=== PATIENT | female | born 1970 | race African-American/Black ===

== ENCOUNTER 2020-10-25 13:55 | Outpatient (REF) | payer OTHER, SELFPAY | END 2020-10-25 13:56 | disposition home or self-care (01) | LOC: HO.LNP 13:55 | PROVIDERS: Visit Provider Nurse Practitioner Family | DX: Z20.828 Contact with and (suspected) exposure to other viral communicable diseases (principal) | CPT/HCPCS: U0003 ==

== ENCOUNTER 2022-07-12 09:02 | Outpatient (REF) | payer OTHER, SELFPAY ==
--- NOTE | ~2022-07-12 | XR_ITS ---
EXAMINATION: XR HIP, LEFT CLINICAL INFORMATION: Low back pain COMPARISON: None TECHNIQUE: Two views of the left hip. FINDINGS: Bones and soft tissues are normal. No fracture. Alignment is anatomic. Hip joint space is maintained. Phleboliths are noted in the right hemipelvis. XR/XR hip LT w PEL1V IMPRESSION: Normal left hip.
[2022-07-12 11:26] LABS: Hematocrit 36.9 % (37.0-47.0); Hemoglobin 12.2 g/dl (12.0-16.0); Mean Corpuscular HGB Conc 33.1 g/dl (31.0-35.0); Mean Corpuscular Hemoglobin 28.6 pg (27.0-33.0); Mean Corpuscular Volume 86.4 fL (80.0-98.0); Mean Platelet Volume 10.3 fL (9.4-12.3); Platelet Count 283 X10*3/uL (160-400); Red Blood Count 4.27 X10*6/uL (4.20-5.50); Red Cell Distribution Width 14.8 % (11.0-16.0); White Blood Count 8.9 X10*3/uL (4.8-10.8)
[2022-07-12 11:53] LABS: Estimated Average Glucose 97 mg/dL; TSH reflex Free T4 0.72 uIU/mL (0.32-4.0)
[2022-07-12 11:57] LABS: Alanine Aminotransferase 16 U/L (0-31); Albumin Level 4.3 g/dL (3.5-5.0); Alkaline Phosphatase 104 U/L (39-117); Anion Gap 16 (12-20); Aspartate Amino Transferase 26 U/L (5-31); Bilirubin Total 0.3 mg/dL (0.0-1.0); Blood Urea Nitrogen 4 mg/dL (9-16); Calcium 9.6 mg/dL (8.4-10.2); Carbon Dioxide 25 mmol/L (22-29); Chloride 104 mmol/L (96-108); Cholesterol 215 mg/dL; Estimated Glomerular Filt Rate > 60; Glucose Fasting 85 mg/dL (60-99); HDL Cholesterol 77 mg/dL; LDL Cholesterol Calculated 80 mg/dl; Sodium 141 mmol/L (135-145); Total Protein 7.5 g/dL (6.5-8.0); Triglycerides 292 mg/dL
[2022-07-16 14:26] LABS: Aspergillus Antigen Not Detected (Not Detected)
== END 2022-07-12 09:03 | disposition home or self-care (01) ==
LOC: HO.HMGCLDS 09:02
PROVIDERS: Absent Provider Physician Assistant Medical; PCP Physician Assistant; Visit Provider Physician Assistant
DX: I10 Essential (primary) hypertension (principal); M54.50 Low back pain, unspecified; Z77.120 Contact with and (suspected) exposure to mold (toxic)
CPT/HCPCS: 36415; 73502; 80053; 80061; 83036; 84443; 85027; 87305

== ENCOUNTER 2024-09-10 15:25 | Outpatient (AMB) | payer OTHER, SELFPAY ==
--- NOTE | 2024-09-10 15:27 | A.OFFPC_ITS ---
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: No Accompanied by: Self / Same As Patient Allergies ibuprofen [From MOTRIN] Allergy (Unknown, Verified 09/10/24 15:43) UNKNOWN methocarbamol [From ROBAXIN] Allergy (Unknown, Verified 09/10/24 15:43) UNKNOWN naproxen [NAPROXEN] Allergy (Unknown, Verified 09/10/24 15:43) UNKNOWN Medication List - Last Reconciled 09/10/24 by Michael Hernandez PA-C albuterol sulfate 90 mcg/actuation 1 inh inhalation QID PRN 30 days amlodipine 5 mg PO DAILY 90 days [bath mat As directed] buprenorphine-naloxone 8-2 mg 1 film sublingual DAILY bupropion HCl SR mg PO cane As directed cholecalciferol (vitamin D3) 50 mcg PO DAILY 90 days disposable gloves As directed docusate sodium 100 mg PO BID facial mask As directed fluoxetine 20 mg PO DAILY Grab bar As directed incontinence pad, liner, disp (Pant Liners, Large pads) As directed [Incontinent wipes As directed] loperamide 2 mg PO QID PRN 10 days multivitamin (Daily-Margoth tablet) 1 tab PO DAILY nicotine 1 patch transdermal DAILY 14 days nicotine 1 patch transdermal DAILY 14 days omeprazole 20 mg PO DAILY quetiapine 100 mg PO BEDTIME quetiapine 50 mg PO BEDTIME 90 days [Rollator walker with a seat As directed] Shower Chair As directed [toilet seat As directed] underpads (Goodnites Bed Mats) As directed walker As directed Tobacco use date assessed: 09/10/24 Dental Screening Dental Screen Date: 09/10/24 Did you have a dental visit in the last 12 months?: Yes Did you have a dental problem in the last 6 months where you did not have access to dental care?: No Was dental information given to patient?: Patient has dentist HPI Overdue for PE/Lab F/U HPI Details Patient is a 54 year old female being evaluated today via telephone.? Patient has a past history significant for ADHD, GERD, tabacco use disorder,? hyperten edgar. Patient does not have transportation and now living in homeless usp leave. 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 Opiate dependency: Patient recently started opiate program and now on Suboxone. As above living in homeless usp here in [place]. Looking to get a new apartment sometime soon. She reports she has been sober from street opiates over the last 3 months. .. ADHD/ depression/anxiety: She is now living in a homeless usp in [place]. Not currently on any ADHD medication at this time. She reports she does have a counselor through her Suboxone clinic .. Tobacco dependency:? using nicotine patches again.? She does report having a lot of stress which causes more & more urged to smoke. . GERD:? She does report her GERD symptoms have been worse over the last several weeks.? She does report her diet being poor due to living in a homeless usp. .. HTN:? Patient reports blood pressures have been stable at home 120 is 130 systolic.? Continues on amlodipine 5 mg side without side effects. Mammogram: Needs Colorectal cancer screening: Needs Advanced Manufacturing Associate: Needs Vaccines: Up-to-date with tetanus vaccine, up-to-date with COVID Laboratory Tests 11/28/18 07/12/22 09:00 09:21 Cholesterol 185 215 [facility] Medical History (Updated 09/14/24 @ 07:51 by Michael Hernandez PA-C) Insomnia Surgical History History of surgery History of section Family History Father Medical history unknown Mother Stroke Sister Stroke Social History Housing: Apartment Patient Tobacco Use Status: Current everyday Tobacco user Tobacco use type: Cigarette Cigarettes Per Day: 10 e-Cigarette/Vaping Use: Never Used service: No Current occupational status: disabled Cognitive needs: No Hearing needs: No Vision needs: No Questionnaire PHQ-9 Over the last 2 weeks, how often have you been bothered by any of the following problems? 1. Little interest or pleasure in doing things: more than half the days 2. Feeling down, depressed, or hopeless: more than half the days 3. Trouble falling or staying asleep, or sleeping too much: more than half the days 4. Feeling tired or having little energy: nearly every day 5. Poor appetite or overeating: nearly every day 6. Feeling bad about yourself - or that you are a failure or have let yourself or your family down: more than half the days 7. Trouble concentrating on things, such as reading the newspaper or watching television: more than half the days 8. Moving or speaking so slowly that other people could have noticed. Or the opposite - being so fidgety or restless that you have been moving around a lot more than usual: more than half the days 9. Thoughts that you would be better off or of hurting yourself in some way: not at all Total score: 18 Depression Screening Interpretation: Positive Depression Screening Follow-up: Existing condition and In treatment Depression Screening Done: Yes 04095 - PHQ-9 Billing: Yes Source: Developed by Drs. Taz Mclean, Sussy Meade, Papo Felipe and colleagues, with an educational estefani from [employer]. Thrive Questionnaire Date Thrive assessed: 09/10/24 I am a: Patient What is your living situation today?: I do not have a steady places to live I am staying at a usp Within the past 12 months, did the food you bought not last and you didn't have the money to get more?: Never true Within the past 12 months, did you worry whether your food would run out before you got money to buy more?: Never true Do you have trouble paying for medicines?: No Do you have trouble getting transportation to medical appointments?: No Do you have trouble paying your heating and electricity bill?: No Do you have trouble taking care of your child, family member or friend?: No Do you have trouble with day-to-day activities such as bathing, preparing meals, shopping, managing finances, etc.?: No Are you currently unemployed and looking for a job?: No Are you interested in more education?: No Please select the resources that you would like help with: None Currently or been in a relationship where the following occur: No concerns reported THRIVE Score: 1 AUDIT C Alcohol Use Questionnaire (AUDIT-C) 1. How often do you have a drink containing alcohol?: Monthly or less 2. How many drinks containing alcohol do you have on a typical day when you are drinking?: 1 or 2 3. How often do you have six or more drinks on one occasion?: Never Total Score: 1 RICARDA-7 AMB Questionnaire RICARDA-7 Date RICARDA - 7 assessed: 02/28/23 Feeling nervous, anxious, or on edge: 2 = More than half the days Not being able to stop or control worryin = Nearly every day Worrying too much about different things: 3 = Nearly every day Trouble relaxin = More than half the days Being so restless that it is hard to sit still: 0 = Not at all Becoming easily annoyed or irritable: 3 = Nearly every day Feeling afraid as if something awful might happen: 2 = More than half the days Total RICARDA-7 score (0-4 normal; 5-9 mild; 10-14 moderate; 15-21 severe): 15 Source: Developed by Drs. Taz Mclean, Sussy Meade, Papo Felipe and colleagues, with an educational estefani from [employer]. RICARDA-7 Assessment Billing RICARDA-7 Assessment Tool: RICARDA-7 Assessment 71526 Review of Systems Const Denies body aches, Denies chills, Denies excessive sweating, Denies fatigue, Denies fever(s) and Denies headache(s) Eyes Denies blurry vision ENT Denies dysphagia, Denies vertigo, Denies dizziness, Denies headache(s), Denies hearing loss and Denies tinnitus Card Denies chest pain, Denies chest pain with activity, Denies syncope, Denies irregular heart rhythm and Denies dyspnea Resp Denies chest congestion, Denies cough, Denies hemoptysis, Denies dyspnea and Denies wheezing GI Denies abdominal pain, Denies melena, Denies hematochezia, Denies coffee ground emesis, Denies dysphagia, Denies diarrhea, Denies nausea and Denies vomiting Denies urinary frequency, Denies dysuria, Denies urinary hesitancy and Denies u rinary urgency Musc Denies arthralgias, Denies limited range of motion, Denies muscle cramps and Denies muscle weakness Skin/Breast Denies rash and Denies skin ulcer Neuro Denies Abnormal speech present, Denies confusion, Denies vertigo, Denies dizziness, Denies syncope, Denies headache(s), Denies memory loss and Denies sei zure-like activity Psych Reports anxiety, Denies confusion, Reports depression, Reports difficulty concentrating, Reports irritability, Denies memory loss, Reports mood swings, Denies panic attacks and Denies paranoia Endo Denies excessive sweating, Denies fatigue, Denies flushing, Denies polydipsia and Denies polyuria Aller/Immun Denies wheezing Physical exam (Primary Care) Vital Signs: Last Vital Signs Pulse 60 09/10/24 15:28 BP 152/82 H 09/10/24 15:28 Pulse Ox 100 09/10/24 15:28 Oxygen Delivery Method Room Air 09/10/24 15:28 BMI result Body Mass Index 20.0 Tobacco/Smoking Status: Tobacco use Status Tobacco use date assessed 09/10/24 09/10/24 15:40 Patient Tobacco Use Status Current everyday Tobacco 09/10/24 15:30 Tobacco use type Cigarette 09/10/24 15:30 e-Cigarette/Vaping Use Never Used 09/10/24 15:30 PHQ-9: PHQ-9 Score PHQ-9: Total score 18 09/14/24 07:54 Depression Screening Interpretation: Positive Depression Screening Follow-up: Existing condition and In treatment Thrive Assessment: Date of Thrive Assessment Date Thrive assessed 09/10/24 09/10/24 15:36 Currently or been in a relationship where the following occur: No concerns reported Const Other: Appears thin. General: cooperative, comfortable, no acute distress, alert and awake; No confusion Orientation/consciousness: oriented to person, oriented to place, patient oriented x3 and No confusion HENMT Head: Yes normocephalic Ears: external ears normal and TM's normal bilaterally Face and sinus: No sinus tenderness Mouth: Normal oral and palatal mucosa present and tongue normal Teeth and gingiva: dentition normal and gingiva normal Throat: Yes posterior oropharynx normal, Yes tonsils normal and Yes uvula midline Eyes Conjunctivae: conjunctivae normal Sclerae: sclerae normal Pupils: Equal, round and reactive pupils present EOM: EOMs intact bilaterally Direct Ophthalmoscopy: No no photophobia Neck Neck: Yes no lymphadenopathy, No tender and Yes no JVD Thyroid: Thyroid normal Carotids: no bruits Chest Chest palpation & inspection: no tenderness Resp Effort & Inspection: normal respiratory effort, no audible wheezes, not labored and no stridor Auscultation: no crackles, no rales, no rhonchi and no wheezes Cardio Jugular venous distension: no JVD Rate: regular rate, not bradycardic and not tachycardic Rhythm: regular rhythm Bruits: no carotid bruits Peripheral pulses: Peripheral pulses 2+ throughout GI Inspection: Yes normal to inspection, No abdominal wall ecchymosis and No visible herniation Palpation (GI): Soft to palpation, nontender, no guarding, not rigid and No hepatosplenomegaly present Auscultation: normoactive bowel sounds General: Yes no CVA tenderness Back/Spine/Pelvis Back: no CVA tenderness and No back tenderness Cervical Spine: cervical ROM normal Thoracic/Lumbar Spine: thoracic and lumbar spine normal to inspection, straight leg raise negative bilaterally, No thoraco-lumbar ROM limited and No lumbar spinal tenderness Skin Lesions: no lesions Rashes: no rashes Wounds: no wounds Neuro General: oriented to person, oriented to place, patient oriented x3, CN's II-XI intact bilaterally and No confusion Cranial nerves: Yes Equal, round and reactive pupils present and Yes Normal accommodation reflex present Cognition (Neuro): normal cognition Speech: No Abnormal speech present Gait exam (Neuro): Normal gait present Motor exam (neuro): 5/5 motor strength present throughout Extrem Right upper extremity: full ROM; no cyanosis Left upper extremity: full ROM; no cyanosis Right lower extremity: no edema Left lower extremity: no edema Psych Appearance: grossly normal Mental Status: mental status grossly normal Affect: normal affect Attitude: cooperative Thought process: Normal thought process present Office Procedures Flu Questionnaire Does the patient have a severe egg allergy?: No Does the patient have severe life threatening allergies?: No Does the patient have a fever or illness today?: No Has the patient ever had Guillain-Gerber Syndrome?: No Has the patient ever had any past reaction to a flu shot?: No Immunizations Fluarix Triv [id number] (PF) 45 mcg (15 mcg x 3)/0.5 mL IM syringe Performing Provider: Michael Hernandez PA-C Performing Location: [facility] [place] [facility] Documented (not given) by: DOMINIQUE Mccarty on 09/10/24 15:42 Reason Not Given: Patient Refused Coding Level of Care Code Est Pt Prev Care 40-64y(16659) Diagnoses Annual physical exam Z00.00 MDD (major depressive disorder), recurrent episode, moderate F33.1 Attention deficit hyperactivity disorder (ADHD), combined type F90.2 Attention deficit-hyperactivity disorder type: combined inattentive- hyperactive Alcohol use disorder, mild, abuse F10.10 Encounter for screening mammogram for malignant neoplasm of breast Z12.31 Breast cancer screening modality: mammogram Colon cancer screening Z12.11 Cervical cancer screening Z12.4 Borderline high cholesterol E78.9 Opioid dependence in remission F11.21 Substance use status: in remission Weight loss R63.4 Mild intermittent asthma with exacerbation J45.21 Asthma persistence: intermittent Asthma severity: mild Additional Codes RICARDA-7 Assessment Billing - RICARDA-7 Assessment Tool: RICARDA-7 Assessment 27348 ([id number]) PHQ-9 - 84980 - PHQ-9 Billing: Yes ([id number]) Assessment & Plan Assessment & Plan (1) Annual physical exam: Code(s): Z00.00 - Encounter for general adult medical examination without abnormal findings Category: Medical Plan: As per HPI (2) MDD (major depressive disorder), recurrent episode, moderate: Code(s): F33.1 - Major depressive disorder, recurrent, moderate Category: Medical Plan: Patient's PHQ-9 score positive for moderate depression which has been existing condition for her. She has a lot of social and personal issues going on at this time which causes her depression. She is willing to restart her on her mental health medication including Seroquel and fluoxetine. (3) ADHD (attention deficit hyperactivity disorder): Code(s): F90.9 - Attention-deficit hyperactivity disorder, unspecified type Category: Medical Qualifiers: Attention deficit-hyperactivity disorder type: combined inattentive- hyperactive Qualified Code(s): F90.2 - Attention-deficit hyperactivity disorder, combined type Plan: As per HPI patient does have a history of ADHD and was on stimulant ADHD medication. Due to her noncompliance with the appointments and polysubstance use disorder will hold off on stimulant ADHD medication for now. Will discuss non stimulant ADHD medication if she is willing to try this in the future. (4) Alcohol use disorder, mild, abuse: Code(s): F10.10 - Alcohol abuse, uncomplicated Category: Medical Plan: Per patient she reports she has stopped drinking. (5) Breast cancer screening: Code(s): Z12.39 - Encounter for other screening for malignant neoplasm of breast Category: Medical Qualifiers: Breast cancer screening modality: mammogram Qualified Code(s): Z12.31 - Encounter for screening mammogram for malignant neoplasm of breast Plan: Is overdue for breast cancer screening (6) Colon cancer screening: Code(s): Z12.11 - Encounter for screening for malignant neoplasm of colon Category: Medical Plan: Is overdue for colon cancer screening (7) Cervical cancer screening: Code(s): Z12.4 - Encounter for screening for malignant neoplasm of cervix Category: Medical Plan: He is overdue for Pap screening (8) Borderline high cholesterol: Code(s): E78.9 - Disorder of lipoprotein metabolism, unspecified Category: Medical Plan: Patient's most recent lipid panel showing borderline high total cholesterol. She will work on lifestyle and dietary modifications. Goal LDL is to be below 130 (9) Opiate dependence: Code(s): F11.20 - Opioid dependence, uncomplicated Category: Medical Qualifiers: Substance use status: in remission Qualified Code(s): F11.21 - Opioid dependence, in remission Plan: Patient regularly going to a Suboxone clinic and off of street opiates over the last 3 months. (10) Weight loss: Code(s): R63.4 - Abnormal weight loss Category: Medical Plan: Has lost a lot of weight likely secondary to her polysubstance use disorder. (11) Asthma exacerbation: Code(s): J45.901 - Unspecified asthma with (acute) exacerbation Category: Medical Qualifiers: Asthma persistence: intermittent Asthma severity: mild Qualified Code(s): J45.21 - Mild intermittent asthma with (acute) exacerbation Plan: Unfortunately patient does continue to smoke. She has had a minor exacerbation in her asthma recently in his asking for some prednisone. Orders: Orders Complete Blood Count no Diff 09/10/24 Z13.1 - Encounter for screening for diabetes mellitus MM screening mammo BI 09/10/24 Z12.31 - Encounter for screening mammogram for malignant neoplasm of breast, Z12.39 - Encounter for other screening for malignant neoplasm of breast Lipid Panel 09/10/24 E78.9 - Disorder of lipoprotein metabolism, unspecified Comprehensive [place]. Panel Fast 09/10/24 Z13.1 - Encounter for screening for d iabetes mellitus Microalbumin, Random (w Creat) 09/10/24 I10 - Essential (primary) hypertension Influenza [id number] Immunization 09/10/24 Z23 - Encounter for immunization TSH reflex Free T4 09/10/24 R63.4 - Abnormal weight loss Referrals [employer]ODUCT [employer]ELOP[employer] Referral Z12.4 - Encounter for screening for malignant neoplasm of cervix Gastroenterology Referral Z12.11 - Encounter for screening for malignant neoplasm of colon Medications: New prednisone Take 3 tablets x2 days, 2 tablets x2 days, 1 tablet x2 days 10 mg PO DIRECTED 12 tabs 0RF 6 days J45.901 - Unspecified asthma with (acute) exacerbation Refilled amlodipine 5 mg PO DAILY 90 tabs 2RF 90 days I10 - Essential (primary) hyper tension cholecalciferol (vitamin D3) 50 mcg PO DAILY 90 tabs 2RF 90 days F33.1 - Major depressive disorder, recurrent, moderate fluoxetine 20 mg PO DAILY 30 tabs 3RF Z78.0 - Asymptomatic menopausal state nicotine 1 patch transdermal DAILY 14 ea 0RF 14 days F17.200 - Nicotine dependence, unspecified, uncomplicated quetiapine 100 mg PO BEDTIME 90 tabs 2RF G47.00 - Insomnia, unspecified albuterol sulfate 90 mcg/actuation 1 inh inhalation QID PRN 8.5 grams 0RF short ness of breath or wheezing 30 days R05.9 - Cough, unspecified nicotine 1 patch transdermal DAILY 14 ea 0RF 14 days F17.200 - Nicotine dependence, unspecified, uncomplicated omeprazole 20 mg PO DAILY 90 caps 2RF K21.9 - Gastro-esophageal reflux disease without esophagitis quetiapine 50 mg PO BEDTIME 90 tabs 2RF 90 days G47.00 - Insomnia, unspecified [Incontinent wipes] As directed 100 ea 0RF I10 - Essential (primary) hypertension underpads (Goodnites Bed Mats) As directed 36 ea 0RF R32 - Unspecified urinary incontinence incontinence pad, liner, disp (Pant Liners, Large pads) As directed 96 ea 0RF R32 - Unspecified urinary incontinence
[2024-09-10 15:28] VITALS: BP 152/82; PULSE 60; O2SAT 100
== END 2024-09-10 16:02 | disposition home or self-care (01) ==
PROVIDERS: PCP Physician Assistant; Visit Provider Physician Assistant
DX: Z00.00 Encounter for general adult medical examination without abnormal findings (principal); F33.1 Major depressive disorder, recurrent, moderate; F11.21 Opioid dependence, in remission; F90.2 Attention-deficit hyperactivity disorder, combined type; F10.10 Alcohol abuse, uncomplicated; Z12.31 Encounter for screening mammogram for malignant neoplasm of breast; Z12.11 Encounter for screening for malignant neoplasm of colon; E78.9 Disorder of lipoprotein metabolism, unspecified; R63.4 Abnormal weight loss; J45.21 Mild intermittent asthma with (acute) exacerbation

== ENCOUNTER → 2024-09-10 15:25 | Outpatient (BNVA) | payer OTHER, SELFPAY | PROVIDERS: PCP Physician Assistant; Visit Provider Physician Assistant | DX: Z00.00 Encounter for general adult medical examination without abnormal findings (principal); F33.1 Major depressive disorder, recurrent, moderate; F90.2 Attention-deficit hyperactivity disorder, combined type; F10.10 Alcohol abuse, uncomplicated; E78.9 Disorder of lipoprotein metabolism, unspecified; F11.21 Opioid dependence, in remission; R63.4 Abnormal weight loss; J45.21 Mild intermittent asthma with (acute) exacerbation | CPT/HCPCS: 90471; 96127; 99396 ==

== ENCOUNTER 2024-09-15 08:38 | Outpatient (REF) | payer OTHER, SELFPAY ==
[2024-09-15 10:59] LABS: MANUAL DIFF FLAG NO
[2024-09-15 11:18] LABS: Basophils Percent Auto 0.4 % (0-2); Eosinophils Absolute Auto 0.1 X10*3/uL (0.0-0.4); Eosinophils Percent Auto 1.1 % (0-4); Hematocrit 39.1 % (37.0-47.0); Hemoglobin 12.6 g/dl (12.0-16.0); Imm Gran Abs Auto 0.03 X10*3/uL (0.00-0.03); Imm Gran Pct Auto 0.4 % (0.0-0.4); Lymphocytes Absolute Auto 2.5 X10*3/uL (1.2-4.9); Lymphocytes Percent Auto 32.6 % (20-40); Mean Corpuscular HGB Conc 32.2 g/dl (31.0-35.0); Mean Corpuscular Hemoglobin 26.8 pg (27.0-33.0); Mean Corpuscular Volume 83.2 fL (80.0-98.0); Mean Platelet Volume 10.6 fL (9.4-12.3); Monocytes Absolute Auto 0.4 X10*3/uL (0.1-1.2); Monocytes Percent Auto 5.8 % (2-11); Neutrophils Absolute Auto 4.5 x10*3/uL (2.0-8.3); Neutrophils Percent Auto 59.7 % (45-73); Platelet Count 246 X10*3/uL (160-400); Red Cell Distribution Width 15.1 % (11.0-16.0); White Blood Count 7.6 X10*3/uL (4.8-10.8)
[2024-09-15 11:31] LABS: Alanine Aminotransferase 19 U/L (0-31); Alkaline Phosphatase 89 U/L (39-117); Anion Gap 10 (12-20); Aspartate Amino Transferase 23 U/L (5-31); Bilirubin Direct < 0.2 mg/dL (0.0-0.5); Bilirubin Total 0.1 mg/dL (0.0-1.0); Blood Urea Nitrogen 10 mg/dL (9-16); Carbon Dioxide 29 mmol/L (22-29); Chloride 107 mmol/L (96-108); Cholesterol 186 mg/dL (<200); Estimated Glomerular Filt Rate > 60; Glucose Fasting 124 mg/dL (60-99); HDL Cholesterol 79 mg/dL (>40); LDL Cholesterol Calculated 95 mg/dL (<100); Potassium 3.4 mmol/L (3.3-5.1); Sodium 143 mmol/L (135-145); Total Protein 6.7 g/dL (6.5-8.0); Triglycerides 63 mg/dL (<150)
[2024-09-15 11:54] LABS: TSH reflex Free T4 1.31 uIU/mL (0.32-4.0)
[2024-09-15 11:55] LABS: HBS Num1 0.35 mIU/mL (0-7.99); HBc Num1 0.08 S/CO (0.00-0.79); HBsAGNum1 0.48 S/CO (0.00-0.99); HIV AB/AG Nonreactive (Nonreactive); HIV Num 1 0.04 S/CO (0.00-0.99); Hepatitis B Core Antibody Nonreactive (Nonreactive); Hepatitis B Surface Antigen Negative (Negative); ~HepC Num1 0.11 S/CO (0.00-0.79); ~Hepatitis B Surface Antibody NONREACTIVE (Nonreactive); ~Hepatitis C Antibody Nonreactive (Nonreactive)
[2024-09-15 12:01] LABS: Hepatitis A Antibody IgG Nonreactive (Nonreactive); ~Hepatitis A Antibody IgG 0.18 S/CO (0.00-0.99)
[2024-09-15 12:06] LABS: Creatinine Urine 87.26 mg/dL; Microalbumin Urine < 5.0 mg/L
[2024-09-15 14:07] LABS: CT PCR NOT DETECTED (Not Detect.); NG PCR NOT DETECTED (Not Detect.)
[2024-09-17 10:57] LABS: RPR Rapid Plasma Reagin NON-REACTIVE (NON-REACTIVE)
[2024-09-18 08:19] LABS: TS Negative Control Passed; TS Panel A 3; TS Panel B 0; TS Positive Control Passed; TSpotTB Negative (Negative)
== END 2024-09-15 08:39 | disposition home or self-care (01) ==
LOC: HO.HHCL 08:38
PROVIDERS: Emergency Medicine; Visit Provider Physician Assistant
DX: F11.20 Opioid dependence, uncomplicated (principal); Z13.1 Encounter for screening for diabetes mellitus; E78.9 Disorder of lipoprotein metabolism, unspecified; R63.4 Abnormal weight loss; I10 Essential (primary) hypertension
CPT/HCPCS: 36415; 80053; 80061; 80076; 82043; 82248; 82570; 84443; 85025; 85027; 86481; 86592; 86704; 86706; 86708; 86803; 87340; 87389; 87491; 87591

== ENCOUNTER → 2024-10-13 14:20 | Outpatient (BNVA) | payer OTHER, SELFPAY | PROVIDERS: PCP Physician Assistant ==

== ENCOUNTER 2024-11-16 12:39 | Outpatient (AMB) | payer OTHER, SELFPAY ==
--- NOTE | 2024-11-16 12:49 | MHC.PC.OV ---
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 Accompanied by: Self / Same As Patient Allergies ibuprofen [From MOTRIN] Allergy (Unknown, Verified 11/16/24 13:01) UNKNOWN methocarbamol [From ROBAXIN] Allergy (Unknown, Verified 11/16/24 13:01) UNKNOWN naproxen [NAPROXEN] Allergy (Unknown, Verified 11/16/24 13:01) UNKNOWN Medication List - Last Reconciled 11/16/24 by Michael Hernandez PA-C albuterol sulfate 90 mcg/actuation 1 inh inhalation QID PRN 30 days amlodipine 5 mg PO DAILY 90 days [bath mat As directed] buprenorphine-naloxone 8-2 mg 1 film sublingual DAILY cane As directed cholecalciferol (vitamin D3) 50 mcg PO DAILY 90 days disposable gloves As directed docusate sodium 100 mg PO BID facial mask As directed fluoxetine 20 mg PO DAILY Grab bar As directed [humidifier As directed] incontinence pad, liner, disp (Pant Liners, Large pads) As directed [Incontinent wipes As directed] loperamide 2 mg PO QID PRN 10 days multivitamin (Daily-Margoth tablet) 1 tab PO DAILY nicotine 1 patch transdermal DAILY 14 days nicotine 1 patch transdermal DAILY 14 days omeprazole 20 mg PO DAILY prednisone 10 mg PO DIRECTED 6 days quetiapine 100 mg PO BEDTIME quetiapine 50 mg PO BEDTIME 90 days [Rollator walker with a seat As directed] Shower Chair As directed [toilet seat As directed] underpads (Goodnites Bed Mats) As directed walker As directed Tobacco use date assessed: 11/16/24 Dental Screening Dental Screen Date: 11/16/24 Did you have a dental visit in the last 12 months?: No Did you have a dental problem in the last 6 months where you did not have access to dental care?: No Was dental information given to patient?: Patient has dentist HPI f/u urgent care HPI Details The patient is a 54-year-old female presenting with concerns of significant weight loss and severe knee pain. The weight loss was noted to be abrupt, coinciding with a recent vacation during which the patient misplaced her medication bag containing her Seroquel and antihypertensive medications. The patient reports not having been on these medications, which has led to considerable distress regarding her weight. The knee pain reportedly began without any preceding trauma and has progressively worsened, emanating from the kneecap and leading to immobility at times. The patient has attempted to manage this with prednisone prescribed at urgent care but reports a return of intense pain after completing a seven-day course. The urgency of addressing these issues was heightened by the significant functional impact, restricting her daily activities such as walking her daughter to the bus stop. [facility] Medical History Insomnia Surgical History History of surgery History of section Family History Father Medical history unknown Mother Stroke Sister Stroke Social History Housing: Apartment Patient Tobacco Use Status: Current everyday Tobacco user Tobacco use type: Cigarette Cigarettes Per Day: 10 e-Cigarette/Vaping Use: Never Used service: No Current occupational status: disabled Cognitive needs: No Hearing needs: No Vision needs: No Questionnaire PHQ-9 Over the last 2 weeks, how often have you been bothered by any of the following problems? 1. Little interest or pleasure in doing things: more than half the days 2. Feeling down, depressed, or hopeless: more than half the days 3. Trouble falling or staying asleep, or sleeping too much: more than half the days 4. Feeling tired or having little energy: nearly every day 5. Poor appetite or overeating: nearly every day 6. Feeling bad about yourself - or that you are a failure or have let yourself or your family down: more than half the days 7. Trouble concentrating on things, such as reading the newspaper or watching television: more than half the days 8. Moving or speaking so slowly that other people could have noticed. Or the opposite - being so fidgety or restless that you have been moving around a lot more than usual: more than half the days 9. Thoughts that you would be better off or of hurting yourself in some way: not at all Total score: 18 Depression Screening Interpretation: Positive Depression Screening Follow-up: Existing condition and In treatment Depression Screening Done: Yes 59689 - PHQ-9 Billing: Yes Source: Developed by Drs. Taz Mclean, Sussy Meade, Papo Felipe and colleagues, with an educational estefani from [employer]. Thrive Questionnaire Date Thrive assessed: 11/16/24 I am a: Patient What is your living situation today?: I do not have a steady places to live I [place] staying [place] Within the past 12 months, did the food you bought not last and you didn't have the money to get more?: Never true Within the past 12 months, did you worry whether your food would run out before you got money to buy more?: Never true Do you have trouble paying for medicines?: No Do you have trouble getting transportation to medical appointments?: No Do you have trouble paying your heating and electricity bill?: No Do you have trouble taking care of your child, family member or friend?: No Do you have trouble with day-to-day activities such as bathing, preparing meals, shopping, managing finances, etc.?: No Are you currently unemployed and looking for a job?: No Are you interested in more education?: No Please select the resources that you would like help with: None Currently or been in a relationship where the following occur: No concerns reported THRIVE Score: 1 AUDIT C Alcohol Use Questionnaire (AUDIT-C) 1. How often do you have a drink containing alcohol?: Monthly or less 2. How many drinks containing alcohol do you have on a typical day when you are drinking?: 1 or 2 3. How often do you have six or more drinks on one occasion?: Never Total Score: 1 RICARDA-7 AMB Questionnaire RICARDA-7 Date RICARDA - 7 assessed: 11/16/24 Feeling nervous, anxious, or on edge: 2 = More than half the days Not being able to stop or control worryin = Nearly every day Worrying too much about different things: 3 = Nearly every day Trouble relaxin = More than half the days Being so restless that it is hard to sit still: 0 = Not at all Becoming easily annoyed or irritable: 3 = Nearly every day Feeling afraid as if something awful might happen: 2 = More than half the days Total RICARDA-7 score (0-4 normal; 5-9 mild; 10-14 moderate; 15-21 severe): 15 Source: Developed by Drs. Taz Mclean, Sussy Meade, Papo Felipe and colleagues, with an educational estefani from [employer]. RICARDA-7 Assessment Billing RICARDA-7 Assessment Tool: RICARDA-7 Assessment 08603 Review of Systems Const Denies headache(s) Eyes Denies loss of vision ENT Denies vertigo, Denies dizziness, Denies headache(s) and Denies sore throat Card Denies chest pain, Denies leg edema and Denies lightheadedness Resp Denies cough, Denies hemoptysis and Denies wheezing GI Denies abdominal pain, Denies melena, Denies constipation, Denies diarrhea and Denies vomiting Denies urinary frequency, Denies dysuria and Denies urinary urgency Musc Denies arthralgias, Denies joint swelling, Denies numbness and Denies tingling Neuro Denies Abnormal speech present, Denies behavioral changes, Denies vertigo, Denies dizziness, Denies headache(s), Denies loss of vision, Denies memory loss, Denies numbness and Denies tingling Psych Denies anxiety, Denies behavioral changes, Denies depression, Denies memory loss and Denies panic attacks Jeremias/Lymph Denies easy bleeding and Denies easy bruising Aller/Immun Denies wheezing Physical exam (Primary Care) Vital Signs: Last Vital Signs Pulse 64 11/16/24 12:50 BP 132/86 11/16/24 12:50 Pulse Ox 98 11/16/24 12:50 Oxygen Delivery Method Room Air 11/16/24 12:50 BMI result Body Mass Index 20.1 Tobacco/Smoking Status: Tobacco use Status Tobacco use date assessed 11/16/24 11/16/24 12:56 Patient Tobacco Use Status Current everyday Tobacco 11/16/24 12:56 Tobacco use type Cigarette 11/16/24 12:56 e-Cigarette/Vaping Use Never Used 11/16/24 12:56 PHQ-9: PHQ-9 Score PHQ-9: Total score 18 11/16/24 12:56 Depression Screening Interpretation: Positive Depression Screening Follow-up: Existing condition and In treatment Thrive Assessment: Date of Thrive Assessment Date Thrive assessed 11/16/24 11/16/24 12:56 Currently or been in a relationship where the following occur: No concerns reported Const General: healthy appearing, no acute distress, alert and awake Nutritional Appearance: well nourished Orientation/consciousness: oriented to person, oriented to place and oriented to time HENMT Ears: TM's normal bilaterally General nose exam: Normal nasal mucous membranes and turbinates present Eyes Conjunctivae: conjunctivae normal Sclerae: sclerae normal Pupils: Equal, round and reactive pupils present Neck Neck: Yes no lymphadenopathy and Yes no JVD Thyroid: Thyroid normal Carotids: no bruits Resp Effort & Inspection: normal respiratory effort and not tachypneic Auscultation: no crackles, no rales, no rhonchi and no wheezes Cardio Rate: regular rate Rhythm: regular rhythm Heart sounds: no murmurs and normal S1 and S2 GI Palpation (GI): Soft to palpation, nontender, no hepatomegaly and no splenomegaly Auscultation: normal bowel sounds Skin General skin exam: no rashes or lesions noted and dry skin Neuro General: oriented to person, oriented to place and oriented to time Cranial nerves: Yes Equal, round and reactive pupils present Speech: No Abnormal speech present Gait exam (Neuro): Normal gait present Motor exam (neuro): no tremor noted Extrem Right upper extremity: full ROM Left upper extremity: full ROM Right lower extremity: full ROM; no edema Left lower extremity: full ROM; no edema Psych Mental Status: mental status grossly normal Speech and movement: Normal speech and movement present Affect: normal affect Attitude: cooperative Thought process: Normal thought process present Coding Level of Care Code Est Pt Level 4 (30992) Diagnoses Acute pain of left knee M25.562 Chronicity: acute MDD (major depressive disorder), recurrent episode, moderate F33.1 Attention deficit hyperactivity disorder (ADHD), combined type F90.2 Attention deficit-hyperactivity disorder type: combined inattentive-hyperactive Opioid dependence in remission F11.21 Substance use status: in remission Weight loss R63.4 Additional Codes RICARDA-7 Assessment Billing - RICARDA-7 Assessment Tool: RICARDA-7 Assessment 41915 ([id number]) PHQ-9 - 48775 - PHQ-9 Billing: Yes ([id number]) Assessment & Plan Assessment & Plan (1) Left knee pain: Code(s): M25.562 - Pain in left knee Category: Medical Qualifiers: Chronicity: acute Qualified Code(s): M25.562 - Pain in left knee Plan: Reports acute left knee pain which prompted her urgent care visit. Took personal look at the images though no significant concerns. Has mild arthritis. Advised on insert arthritis medication, cool compress and resting the extremity. (2) MDD (major depressive disorder), recurrent episode, moderate: Code(s): F33.1 - Major depressive disorder, recurrent, moderate Category: Medical Plan: Patient's PHQ-9 score positive for moderate depression which has been existing condition for her. She has a lot of social and personal issues going on at this time which causes her depression. She will restart back on her Seroquel and fluoxetine. (3) ADHD (attention deficit hyperactivity disorder): Code(s): F90.9 - Attention-deficit hyperactivity disorder, unspecified type Category: Medical Qualifiers: Attention deficit-hyperactivity disorder type: combined inattentive-hyperactive Qualified Code(s): F90.2 - Attention-deficit hyperactivity disorder, combined type Plan: As per HPI patient does have a history of ADHD and was on stimulant ADHD medication. Due to her noncompliance with the appointments and polysubstance use disorder will avoid stimulant ADHD medication for now. Will discuss non stimulant ADHD medication if she is willing to try this in the future. (4) Opiate dependence: Code(s): F11.20 - Opioid dependence, uncomplicated Category: Medical Qualifiers: Substance use status: in remission Qualified Code(s): F11.21 - Opioid dependence, in remission Plan: Patient has been out of her Suboxone for a few weeks now. She is reestablishing with her Suboxone clinic here in [place] this week. She reports she has been staying away from street opiates (5) Weight loss: Code(s): R63.4 - Abnormal weight loss Category: Medical Plan: She is concerned about her weight loss. She reports she has been out of Seroquel for few weeks due to losing her medication recently traveling to [place] to see family. Being off Seroquel could have caused her to lose some weight. Also has been under tremendous amount of stress due to family issues and living in a [place] [facility] [place]. She needs new scripts for Seroquel, fluoxetine, antihypertensive medication etc.. Medications: New acetaminophen ER (Tylenol Arthritis Pain) 650 mg PO Q12H 30 days 60 tabs 1RF M19.90 - Unspecified osteoarthritis, unspecified site, M25.562 - Pain in left knee Changed From fluoxetine 20 mg PO DAILY 30 tabs 3RF Z78.0 - Asymptomatic menopausal state To fluoxetine 20 mg PO DAILY 30 days 30 tabs 3RF Z78.0 - Asymptomatic menopausal state Refilled amlodipine 5 mg PO DAILY 90 days 90 tabs 2RF I10 - Essential (primary) hypertension quetiapine 50 mg PO BEDTIME 90 days 90 tabs 2RF G47.00 - Insomnia, unspecified quetiapine 100 mg PO BEDTIME 90 tabs 2RF G47.00 - Insomnia, unspecified prednisone Take 3 tablets x2 days, 2 tablets x2 days, 1 tablet x2 days 10 mg PO DIRECTED 6 days 12 tabs 0RF J45.901 - Unspecified asthma with (acute) exacerbation
[2024-11-16 12:50] VITALS: BP 132/86; PULSE 64; O2SAT 98; BMI 20.1
== END 2024-11-16 13:21 | disposition home or self-care (01) ==
PROVIDERS: PCP Physician Assistant; Visit Provider Physician Assistant
DX: M25.562 Pain in left knee (principal); F33.1 Major depressive disorder, recurrent, moderate; F90.2 Attention-deficit hyperactivity disorder, combined type; F11.21 Opioid dependence, in remission; R63.4 Abnormal weight loss

== ENCOUNTER → 2024-11-16 12:39 | Outpatient (BNVA) | payer OTHER, SELFPAY | PROVIDERS: PCP Physician Assistant; Visit Provider Physician Assistant | DX: M25.562 Pain in left knee (principal); F33.1 Major depressive disorder, recurrent, moderate; F90.2 Attention-deficit hyperactivity disorder, combined type; F11.21 Opioid dependence, in remission; R63.4 Abnormal weight loss | CPT/HCPCS: 96127; 99212 ==

== ENCOUNTER 2025-05-14 08:50 | Outpatient (AMB) | payer OTHER, SELFPAY ==
--- OUTSIDE RECORDS SUMMARY | 2025-05-14 08:53 | XMS_ITS | Clinical Summary ---
Author Organization [employer] Address [address] [place] [address] Care Team Providers Care Clinical Research Coordinator Name Role Phone Unavailable Primary Care Provider Unavailabl e Allergies Active Allergy Reactions Criticality Noted Date Comments Ibuprofen Hives 10/09/2023 Medications chlorhexidine (Peridex) 0.12 % solution Swish 15 mL by mouth once per day for 2 weeks. Spit, do not swallow. Do not eat or drink anything for 30 minutes following use. 473 mL 3 Active docusate sodium (Colace) 100 MG capsuleIndicati ons:Uncomplicat ed opioid dependence (CMS/HCC) 1-2 capsules PO at bedtime prn constipation. 60 capsule 1 4 Active buPROPion SR (Wellbutrin SR) 150 MG 12 hr tablet 1 tablet daily for 3 days, then 1 tablet PO BID. Do not crush, chew, or split. 84 tablet 1 4 Active naltrexone (Depade) 50 MG tablet 1/2 tab PO once daily x 2 days, then 1 tablet PO once daily. May take with food. 15 tablet 5 Active Encounters Date Type Department Care Team Description 03/17/2025 11:30 AM EDT Office Visit [facility] [address] [place] [id number] Cory Chandler MD Uncomplicated opioid dependence (CMS/HCC) (Primary Dx); Alcohol use; Crack cocaine use; Tobacco use disorder 03/17/2025 10:45 AM EDT Office Visit [facility] [address] [place] [address] [phone] Bay Jeffers MD Alcohol use disorder (Primary Dx); Cocaine use disorder (CMS/HCC) 03/17/2025 Travel from Last 3 Months Social History Tobacco Use Types Packs/Day Years Used Date Smoking Tobacco: Every Day Cigarettes Smokeless Tobacco: Never Tobacco Cessation:Ready to Q uit: Not Asked; Counseling Given: Not Answered Alcohol Use Standard Drinks/Week Comments Never 0 (1 standard drink = 0.6 oz pur e alcohol) Comments Unknown Sex and Gender Information Value Date Recorded Sex Assigned at Female 08/27/2022 10:34 AM EDT Legal Sex Female 10:34 AM EDT Gender Identity Female 10/09/2023 9:22 AM EST Sexual Orientation Straight 10/09/2023 9: 22 AM EST Plan of Treatment Health Maintenance Due Date Last Done Comments CT Colonography 1971 Colonoscopy 1971 Colorectal Cancer Screening 1971 Dental Oral Exam 1971 Dental Prophylaxis 1971 Dental X-Ray: Bitewings 1971 Depression Screening 1971 FIT DNA/Cologuard 1971 FIT 1971 FOBT 1971 SDOH Screening 1971 Sigmoidoscopy 1971 Disability Screening 1971 Alcohol/Substance Use Screening 1983 DTaP/Tdap/Td Vaccines (1 - Tdap) 1990 Hepatitis B Vaccines (1 of 3 - 19+ 3-dose series) 1990 Pneumococcal Vaccine: 50+ Ye ars (1 of 2 - PCV) 1990 Pap Smear 1992 Cervical Cancer Screening 2001 HPV/Cotest 2001 Mammogram 2011 Zoster Vaccines (1 of 2) 2021 Dental X-Ray: Full Mouth 10/16/2021 10/15/2018 COVID-19 Vaccine ( - 2023-2 5 season) 2024 Tobacco Screening 10/09/2024 10/09/2023 Influenza Vaccine (#1) 2025 RSV Patients and Pa tients Aged 60 years or older (1 - 1-dose 75+ series) 2046 HIV Screening Completed 09/15/2024 Hepatitis C Screening Completed 09/15/2024 HIB Vaccines Aged Out No longer eligi ble based on patient's age to complete this topic HPV Vaccines Aged Out No longer eligi ble based on patient's age to complete this topic Hepatitis A Vaccines Aged Out No long er eligible based on patient's age to complete this topic IPV Vaccines Aged Out No longer eligi ble based on patient's age to complete this topic Meningococcal B Vaccine Aged Out No l onger eligible based on patient's age to complete this topic Meningococcal Vaccine Aged Out No leslie sis eligible based on patient's age to complete this topic RSV under 20 months Aged Out No longe r eligible based on patient's age to complete this topic Rotavirus Vaccines Aged Out No longer eligible based on patient's age to complete this topic Procedures Procedure Name Priority Date/Time Associated Diagnosis Comments POCT JEROME-14 URINE DRUG SCREEN Routine 03/17/2025 11:43 AM EDT Uncomplicated opioid dependence (CMS/HCC) HEPATITIS C AB W/REFL TO HCV RNA, QN, PCR Routine 09/15/2024 8:43 AM EST Uncomplicated opioid dependence (CMS/HCC) HIV 1/2 ANTIGEN/ANTIBODY, FOURTH GENERATION W/RFL Routine 09/15/2024 8:43 AM EST Uncomplicated opioid dependence (CMS/HCC) PANORAMIC RADIOGRAPHIC IMAGE Routine 10/15/2018 12:00 AM EST from Last 3 Months or Most Recently Relevant to Health Maintenance Results * POCT JEROME-14 Urine Drug Screen (03/17/2025 11:43 AM EDT) THC Negative Cocaine Screen, Urine Positive Opiate Screen, Urine Negative Methamphetamine Screen Urine Negative Amphetamine Screen, Urine Negative Benzodiazepines Screen, Urine Negative Barbiturate Screen, Urine Negative Methadone Screen, Urine Negative Buprenophine Screen, Urine Negative TCA, Urine Negative MDMA Urine Negative ng/mL Oxycodone Screen, Urine Negative Phencyclidine (PCP), Urine Negative Fentanyl, Urine Negative Urine Urine specimen obtained by clean catch procedure / Unknown 03/17/2025 11:43 AM EDT Cory Chandler MD POINT OF CARE TEST ENTER/EDIT ORDERABLES Final Result * Hepatitis C Antibody with Reflex to HCV, RNA, Quantitative, Real-Time PCR (09/15/2024 8:43 AM EST) Hepatitis C Antibody Nonreactive Nonreactive [facility] Comment:Antibodies to HCV no t detected; does not exclude early acuteHCV infection. Blood Venous blood specimen / Unknown 09/15/2024 8:43 AM EST 09/15/2024 10:54 AM EST Cory Chandler MD LAB BLOOD ORDERABLES Final Res ult Performing Organization Address [facility]/ZIP Co de Phone Number [facility] [address] [place] [address] [phone] * HIV-1/2 Antigen and Antibodies, Fourth Generation, with Reflexes (09/15/2024 8:43 AM EST) Pathologist [facility] [place] HIV AB/AG Nonreactive Nonreactive [facility] Comment:HIV-1 p24 Ag and/or HIV-1/HIV-2 Ab not detected.A test result that is nonreactive does not exclude thepossibility of exposure to or infection with HIV-1 and/orHIV-2. Nonreactive results in this assay for individualswith prior exposure to HIV-1 and/or HIV-2 may be due toantigen and antibody levels that are below the limit ofdetection of this assay.The [employer] HIV Ag/Ab Combo assay result andsupplemental assay results should be interpreted inconjunction with the patient's clinical presentation,history and other laboratory results. If the results areinconsistent with clinical evidence, additional testing issuggested to confirm the result. Blood Venous blood specimen / Unknown 09/15/2024 8:43 AM EST 09/15/2024 10:54 AM EST us Cory Chandler MD LAB BLOOD ORDERABLES Final Res ult Performing Organization Address [facility]/ZIP Co de Phone Number [facility] [address] [place] [address] [phone] from Last 3 Months or Most Recently Relevant to Health Maintenance Insurance [facility] < 65 [facility]
--- OUTSIDE RECORDS SUMMARY | 2025-05-14 08:53 | XMS_ITS | Encounter Summary ---
Author Organization [facility] Address [address] [place] [address] Encounters * CPT with Jorge Alberto Mars at [employer] on 2025-05-13 Member phoned in requesting to be seen at home. Member states she called to make a appt with PCP but PCP is not available and does not have anyone covering for him. Member states she is eating but continues to loose weight. Member states she has had diarrhea for about 1-1 &1/2 week. member is concerned about having Norovirus. Member states she went to the ED and was there for 2-3hours without assistance. Member states he daughter has had a a week and a half. Member also states she recently moved and believes she has lost her meds during the moving process and now she cannot get any medications because PCP is not in. Member states she does not know of any urgent care and will have to call the ambulance to transport her. [employer] request submitted. Member aware and in agreement. { patientReports : , denies :[], chiefComplaints : Diarrhea , pmh : Rheumatoid Arthritis, Depression, Hypertension, Bipolar Disorder", allergies : Motrin, Ibuprofen , otherAllergies :null, painA ssessment : , visitOutcome : , additionalComments :"HPI reviewed. } [facility] dispatched to the address listed above for the report of a female green party with weight loss. Arrival on scene, patient found opening door for [facility] ambulating without assistance to a seated position,alert and oriented x4, patent airway, breathing non labored speaking in complete sentences, skin WPD in no obvious distress. +/= Chest rise. -SOB, -CP, -NVD, -Trauma, -Fever. GCS 15. Patient reports that she had 1 day of diarrhea about a week and a half ago which subsided same day after she took Imodium, patient denies black or bloody diarrhea. In addition, patient reports that she has been losing weight despite eating normal food/fluid intake over the past week, reports that she was not takingher Fluoxetine for about a month and started taking it again about a week ago when the symptoms started. Patient denies nausea/vomiting/diarrhea over the past week, reports normal appetite, and normal intake from before the symptoms started. Patient reports that she does not have a scale but is visibly losing weight. Patient vital signs obtained as noted. [facility] [place] consulted, advised patient to follow up with her PCP so they can do a workup. Red flags discussed with patient, advised to call [phone] if she experiences any life-threatening symptoms. [facility] Clear. IV_(FLUIDS_AND/OR_MEDICATION), POC_BLOODWORK, ORTHOSTATIC_VITAL_SIGNS, PO_MEDICATION Written by Jorge Alberto Mars on 2025-05-13
--- NOTE | 2025-05-14 09:23 | MHC.OFFWIV ---
Intake Vital Signs 05/14/25 09:25 Height 5 ft 9.5 in Weight 129 lb BMI 18.8 BP 124/80 Blood Pressure Location Rt brachial Position Sitting Pulse 89 Pulse Source Pulse Oximeter Temp 98.4 F Temp Source Oral Pulse Oximetry (%) 99 Oxygen Delivery Method Room Air Intake Visit Reasons: EP Diarreah, running nose [phone] Intake Note: presents with watery diarrhea for a couple weeks and sinus congestion Patient Tobacco Use Status: Current everyday Tobacco user Allergies ibuprofen (From MOTRIN) Allergy (Unknown, Verified 05/14/25 09:28) UNKNOWN methocarbamol (From ROBAXIN) Allergy (Unknown, Verified 05/14/25 09:28) UNKNOWN naproxen (NAPROXEN) Allergy (Unknown, Verified 05/14/25 09:28) UNKNOWN Do you need a note to return to daycare/school/sports/work: No HPI HPI Comments History of Present Illness Details This is a 54-year-old female with a past medical history of hypertension and depression presenting for evaluation of diarrhea and weight loss. Patient states she has had 3 episodes of diarrhea over the past 6 days that she states has improved by taking [id number] Imodium. Patient states that she has been prescribed fluoxetine by her primary care provider however has lost approximately 10 lb in the last 4 months. ?I'm scared that I have cancer. Patient also states that she has moved to [place] from the [facility] in the movers lost her medications. Patient is requesting refills of her Seroquel and amlodipine. Patient denies having any fevers, chills, chest pain, nausea, vomiting, dysuria or urinary frequency. Patient has no appointment scheduled with her PCP. [facility] Medical History Insomnia Surgical History History of surgery History of section Family History Father Medical history unknown Mother Stroke Sister Stroke Social History Housing: Apartment Patient Tobacco Use Status: Current everyday Tobacco user Tobacco use type: Cigarette Cigarettes Per Day: 10 e-Cigarette/Vaping Use: Never Used service: No Current occupational status: disabled Cognitive needs: No Hearing needs: No Vision needs: No Review of Systems Const All systems reviewed & are unremarkable except as noted in HPI and below Reports as per HPI Eyes Reports no additional complaints ENT Reports no additional complaints Card Reports no additional complaints Resp Reports no additional complaints GI Reports no additional complaints, Denies abdominal pain, Reports diarrhea, Denies nausea and Denies vomiting Reports no additional complaints Musc Reports no additional complaints Skin/Breast Reports system reviewed and no additional complaints, except as documented Neuro Reports no additional complaints Psych Reports no additional complaints Endo Reports no additional complaints Jeremias/Lymph Reports no additional complaints Aller/Immun Reports no additional complaints Physical Exam Vital Signs: Last Vital Signs Temp 98.4 F 05/14/25 09:25 Pulse 89 05/14/25 09:25 BP 124/80 05/14/25 09:25 Pulse Ox 99 05/14/25 09:25 Oxygen Delivery Method Room Air 05/14/25 09:25 BMI result Body Mass Index 18.8 Const General: cooperative, healthy appearing, comfortable, no acute distress, well developed, alert, awake and Physically active Nutritional Appearance: thin Orientation/consciousness: patient oriented x3 Limitations: no limitations Resp Effort & Inspection: normal respiratory effort Auscultation: clear to auscultation bilaterally Cardio Rate: regular rate Rhythm: regular rhythm GI Inspection: Yes normal to inspection Palpation (GI): Soft to palpation, nontender, no guarding, not rigid and No hepatosplenomegaly present Auscultation: normal bowel sounds General: Yes Bimanual renal exam normal bilaterally and Yes bladder normal to palpation Bimanual exam- vagina & uterus: bladder normal to palpation Skin General skin exam: no rashes or lesions noted Neuro General: patient oriented x3 Psych Appearance: grossly normal Mental Status: mental status grossly normal Insight: Good insight present (Psych) Judgement: Good judgement present (Psych) Assessment & Plan Assessment & Plan (1) Diarrhea: Comment: Patient will continue to use Imodium OTC and increase clear fluids daily. Code(s): R19.7 - Diarrhea, unspecified Qualifiers: Diarrhea type: unspecified type Qualified Code(s): R19.7 - Diarrhea, unspecified Plan: Imodium, increase hydration daily. (2) Weight loss: Comment: Patient will follow up with her primary care provider as an outpatient for ongoing evaluation and care. Code(s): R63.4 - Abnormal weight loss Plan: Patient's amlodipine and Seroquel are refill x7 days as her next refill is due on May 21. Medications: New amlodipine 5 mg PO DAILY 7 tabs 0RF quetiapine (Seroquel) 100 mg PO BEDTIME 7 tabs 0RF quetiapine (Seroquel) 50 mg PO BEDTIME 7 tabs 0RF Coding Level of Care Code Est Pt Level 4 (88063) Diagnoses Diarrhea, unspecified type R19.7 Diarrhea type: unspecified type Weight loss R63.4 Time Spent (min) 25
[2025-05-14 09:25] VITALS: BP 124/80; PULSE 89; TEMP 36.9; O2SAT 99; BMI 18.8
== END 2025-05-14 11:12 | disposition home or self-care (01) ==
PROVIDERS: PCP Physician Assistant; Visit Provider Physician Assistant
DX: R19.7 Diarrhea, unspecified (principal); R63.4 Abnormal weight loss

== ENCOUNTER → 2025-05-14 08:50 | Outpatient (BNVA) | payer OTHER, SELFPAY | PROVIDERS: PCP Physician Assistant; Supervising Provider Physician Assistant; Visit Provider Physician Assistant | DX: I10 Essential (primary) hypertension (principal); R19.7 Diarrhea, unspecified; F32.A Depression, unspecified; R63.4 Abnormal weight loss | CPT/HCPCS: 99212 ==